=== PATIENT | male | born 1990 | race African-American/Black ===

== ENCOUNTER 2018-09-26 19:55 | Emergency (ER) | payer OTHER | END 2018-09-27 00:58 | disposition short-term general hospital (02) | LOC: JER 09-27 00:58 | PROC: 3E033NZ Introduction of Analgesics, Hypnotics, Sedatives into Peripheral Vein, Percutaneous Approach (ICD-10-PCS; principal; 2018-09-26) | DX: S11.81XA Laceration without foreign body of other specified part of neck, initial encounter (principal); X99.8XXA Assault by other sharp object, initial encounter; Y93.89 Activity, other specified; Y92.480 Sidewalk as the place of occurrence of the external cause; Y99.8 Other external cause status; Y07.9 Unspecified perpetrator of maltreatment and neglect ==

== ENCOUNTER 2020-06-02 07:58 | Emergency (ER) | payer OTHER ==
[2020-06-02 08:07] VITALS: BP 129/89; PULSE 56; TEMP 98.2; BMI 24.6
[2020-06-02] MEDS ORDERED: ACETAMINOPHEN 500 MG TABLET (FP) PO ONE (08:54)
[2020-06-02] MEDS ORDERED: CEPHALEXIN MONOHYDRATE 500 MG CAPSULE (UD) PO ONE (08:55)
[2020-06-02] MEDS ORDERED: ACETAMINOPHEN 500 MG TABLET (FP) ONE (09:09)
[2020-06-02] MEDS ORDERED: CEPHALEXIN MONOHYDRATE 500 MG CAPSULE (UD) ONE (09:09)
== END 2020-06-02 09:59 | disposition home or self-care (01) ==
LOC: JER 07:58 → JERFT 07:58
DX: B35.3 Tinea pedis (principal); L03.032 Cellulitis of left toe
CPT/HCPCS: 99284-25

== ENCOUNTER 2020-06-04 09:53 | Emergency (ER) | payer OTHER ==
[2020-06-04 10:34] VITALS: TEMP 98; BMI 24.6
[2020-06-04 12:42] LABS: BASO % 0.3 % (0-2.0); HEMATOCRIT 42.4 % (35.4-49); HEMOGLOBIN 14.5 GM/dL (11.7-16.9); LYMPH % 13.8 % (8-40); MCH 32.5 pg (25.7-33.7); MCHC 34.1 g/dl (32.0-35.9); MEAN CELL VOLUME 95.1 fl (80-96); MEAN PLT VOLUME 8.8 fl (7.5-11.1); MONO % 9.4 % (3.8-10.2); NEUT % 75.5 % (42.8-82.8); PLATELET COUNT 225 K/MM3 (134-434); RBC 4.46 M/mm3 (4.00-5.60); RDW 14.2 % (11.9-15.9); WHITE BLOOD COUNT 11.1 K/mm3 (4.0-10.0)
[2020-06-04 13:20] LABS: POTASSIUM 4.1 mmol/L (3.5-5.1)
[2020-06-04 13:21] LABS: CALCIUM 9.4 mg/dL (8.5-10.1)
[2020-06-04 13:22] LABS: ALBUMIN 3.8 g/dl (3.4-5.0); BLOOD UREA NITROGEN 9.7 mg/dL (7-18)
[2020-06-04 13:25] LABS: CREATININE 0.9 mg/dL (0.55-1.3)
[2020-06-04 13:27] LABS: BILIRUBIN,TOTAL 1.1 mg/dL (0.2-1); TOT PROT 7.9 g/dl (6.4-8.2)
[2020-06-04 14:44] VITALS: BP 130/89; PULSE 90
== END 2020-06-04 14:44 | disposition home or self-care (01) ==
LOC: JER 09:53
DX: L03.116 Cellulitis of left lower limb (principal)
CPT/HCPCS: 36415; 80053; 83605; 85025; 87040; 93971-TC; 99284-25

== ENCOUNTER 2020-06-08 15:45 | Inpatient (IN) | payer OTHER ==
[2020-06-08] MEDS ORDERED: CLINDAMYCIN 600MG PREMIX IVPB 600 MG/50 ML BAG IVPB ONE ×2 (18:03→19:21)
[2020-06-08 18:56] LABS: BASO % 0.8 % (0-2.0); EOS % 4.1 % (0-4.5); HEMATOCRIT 38.4 % (35.4-49); LYMPH % 31.8 % (8-40); MCH 32.5 pg (25.7-33.7); MEAN CELL VOLUME 95.6 fl (80-96); MEAN PLT VOLUME 8.6 fl (7.5-11.1); MONO % 10.5 % (3.8-10.2); NEUT % 52.8 % (42.8-82.8); PLATELET COUNT 292 K/MM3 (134-434); RBC 4.01 M/mm3 (4.00-5.60); RDW 14.1 % (11.9-15.9); WHITE BLOOD COUNT 7.9 K/mm3 (4.0-10.0)
[2020-06-08 19:04] LABS: INR 1.04 (0.83-1.09); PROTHROMBIN TIME (PATIENT) 12.8 SEC (9.7-13.0)
[2020-06-08 19:25] LABS: ALBUMIN 3.3 g/dl (3.4-5.0); BLOOD UREA NITROGEN 14.2 mg/dL (7-18); CALCIUM 8.6 mg/dL (8.5-10.1)
[2020-06-08] MEDS ORDERED: ACETAMINOPHEN 1000 MG/100 ML VIAL (NON FORMULARY) IVPB ONE (19:25)
[2020-06-08 19:28] LABS: CREATININE 0.9 mg/dL (0.55-1.3)
[2020-06-08 19:30] LABS: BILIRUBIN,TOTAL 0.4 mg/dL (0.2-1); TOT PROT 7.4 g/dl (6.4-8.2)
[2020-06-08] MEDS ORDERED: ACETAMINOPHEN INJECTION 100 ML IVPB ONE ×2 (19:30→20:19)
[2020-06-08 19:40] LABS: POTASSIUM 6.4 mmol/L (3.5-5.1)
[2020-06-08 20:16] LABS: ERYTHROCYTE SEDIMENTATION RATE 37 mm/hr (0-10)
[2020-06-08 21:46] LABS: POTASSIUM 4.1 mmol/L (3.5-5.1)
[2020-06-08 21:47] LABS: CALCIUM 8.3 mg/dL (8.5-10.1)
[2020-06-08 21:48] LABS: BLOOD UREA NITROGEN 14.6 mg/dL (7-18)
[2020-06-08 21:51] LABS: CREATININE 0.9 mg/dL (0.55-1.3)
[2020-06-09] MEDS: ACETAMINOPHEN 1000 MG/100 ML VIAL (NON FORMULARY) IVPB PRN ×3 (03:15→20:05)
[2020-06-09] MEDS ORDERED: CLINDAMYCIN 600MG PREMIX IVPB 600 MG/50 ML BAG IVPB ONE ×3 (04:10→15:04)
[2020-06-09] MEDS: CLINDAMYCIN 600MG PREMIX IVPB 600 MG/50 ML BAG IVPB SCH ×3 (04:15→15:10)
[2020-06-09 08:54] LABS: BASO % 0.8 % (0-2.0); EOS % 4.6 % (0-4.5); HEMATOCRIT 39.4 % (35.4-49); HEMOGLOBIN 13.4 GM/dL (11.7-16.9); LYMPH % 35.7 % (8-40); MCH 32.6 pg (25.7-33.7); MCHC 34.1 g/dl (32.0-35.9); MEAN CELL VOLUME 95.7 fl (80-96); MEAN PLT VOLUME 8.9 fl (7.5-11.1); NEUT % 45.9 % (42.8-82.8); PLATELET COUNT 276 K/MM3 (134-434); RBC 4.12 M/mm3 (4.00-5.60); RDW 13.9 % (11.9-15.9); WHITE BLOOD COUNT 6.2 K/mm3 (4.0-10.0)
[2020-06-09 09:01] LABS: ACTIVATED PTT 36.3 SECONDS (25.2-36.5)
[2020-06-09 09:06] LABS: INR 1.05 (0.83-1.09); PROTHROMBIN TIME (PATIENT) 12.7 SEC (9.7-13.0)
[2020-06-09 09:12] LABS: POTASSIUM 4.4 mmol/L (3.5-5.1)
[2020-06-09 09:15] LABS: CALCIUM 8.8 mg/dL (8.5-10.1)
[2020-06-09 09:16] LABS: ALBUMIN 3.1 g/dl (3.4-5.0); BLOOD UREA NITROGEN 15.7 mg/dL (7-18); MAGNESIUM 2.1 mg/dL (1.8-2.4)
[2020-06-09 09:19] LABS: CREATININE 0.9 mg/dL (0.55-1.3); PHOSPHOROUS 4.1 mg/dL (2.5-4.9)
[2020-06-09 09:21] LABS: BILIRUBIN,TOTAL 0.3 mg/dL (0.2-1)
[2020-06-09] MEDS ORDERED: ENOXAPARIN NA (PORCINE) 40 MG/0.4 ML DISP.SYRIN SQ SCH (12:00)
[2020-06-09] MEDS ORDERED: ENOXAPARIN NA (PORCINE) 40 MG/0.4 ML DISP.SYRIN SQ ONE (12:03)
[2020-06-09] MEDS ORDERED: ACETAMINOPHEN INJECTION 100 ML IVPB ONE ×2 (12:45→19:45)
[2020-06-10 00:25] VITALS: BMI 24.7
[2020-06-10] MEDS: CLINDAMYCIN 600MG PREMIX IVPB 600 MG/50 ML BAG IVPB SCH ×5 (00:53→21:03)
[2020-06-10] MEDS: ACETAMINOPHEN 1000 MG/100 ML VIAL (NON FORMULARY) IVPB PRN (02:12)
[2020-06-10] MEDS ORDERED: BUPIVACAINE HCL 50 ML ONE (09:52)
[2020-06-10] MEDS ORDERED: LIDOCAINE HCL 1%, 10 MG/ML (20ML VIAL) ONE (09:52)
[2020-06-10] MEDS ORDERED: LIDOCAINE HCL 2% (20ML MULTI-DOSE VIAL) ONE (10:01)
[2020-06-10] MEDS ORDERED: SODIUM CHLORIDE 0.9% P/F 10 ML VIAL IJ ONE (10:48)
[2020-06-10] MEDS ORDERED: PROPOFOL 20 ML ONE ×2 (10:53)
[2020-06-10] MEDS ORDERED: MIDAZOLAM HCL 2 MG/2 ML SINGLE DOSE VIAL ONE (10:53)
[2020-06-10] MEDS ORDERED: LIDOCAINE HCL/PF 2% SDV 5ML VIAL ONE (10:53)
[2020-06-10] MEDS ORDERED: BACITRACIN 50,000 UNITS VIAL TP ONE (11:15)
[2020-06-10] MEDS ORDERED: LIDOCAINE HCL 2% (50ML VIAL) INF ONE (11:24)
[2020-06-10] MEDS ORDERED: BUPIVACAINE HCL/PF 0.5% (5MG/ML) 10 ML VIAL IJ ONE (11:25)
[2020-06-10] MEDS ORDERED: ACETAMINOPHEN 500 MG TABLET (FP) PO PRN (11:44)
[2020-06-10] MEDS ORDERED: ONDANSETRON 4 MG/2 ML VIAL IVPUSH PRN (11:44)
[2020-06-10] MEDS ORDERED: LACTATED RINGERS SOLUTION 1,000 ML IV SCH (11:45)
[2020-06-10] MEDS: oxyCODONE HCL 5 MG TABLET PO PRN ×2 (15:31→21:03)
[2020-06-11] MEDS: oxyCODONE HCL 5 MG TABLET PO PRN ×4 (01:24→14:05)
[2020-06-11] MEDS: CLINDAMYCIN 600MG PREMIX IVPB 600 MG/50 ML BAG IVPB SCH ×2 (03:56→10:02)
[2020-06-11] MEDS ORDERED: ENOXAPARIN NA (PORCINE) 40 MG/0.4 ML DISP.SYRIN SQ SCH (10:00)
[2020-06-11 10:21] LABS: HEMATOCRIT 42.2 % (35.4-49); HEMOGLOBIN 14.6 GM/dL (11.7-16.9); MCH 32.6 pg (25.7-33.7); MCHC 34.7 g/dl (32.0-35.9); MEAN CELL VOLUME 93.8 fl (80-96); MEAN PLT VOLUME 8.3 fl (7.5-11.1); PLATELET COUNT 341 K/MM3 (134-434); RDW 13.6 % (11.9-15.9); WHITE BLOOD COUNT 8.5 K/mm3 (4.0-10.0)
[2020-06-11 10:40] LABS: POTASSIUM 3.7 mmol/L (3.5-5.1)
[2020-06-11 10:41] LABS: BLOOD UREA NITROGEN 10.2 mg/dL (7-18)
[2020-06-11 10:42] LABS: CALCIUM 9.5 mg/dL (8.5-10.1)
[2020-06-11 10:45] LABS: CREATININE 1.1 mg/dL (0.55-1.3)
[2020-06-11] MEDS ORDERED: CEFEPIME 1 GM in DEXTROSE 5%-WATER 100 ML IVPB SCH (12:00)
[2020-06-11 15:53] VITALS: BP 123/67; PULSE 68; TEMP 98.5
== END 2020-06-11 14:28 | disposition home or self-care (01) | DRG 383 ==
LOC: JER 15:45 → JERBED 20:41 → J6S 06-09 21:17
PROVIDERS: ADMIT Internal Medicine; ATTEND Family Medicine
PROC: 0Y9N0ZZ Drainage of Left Foot, Open Approach (ICD-10-PCS; principal; 2020-06-10 10:45)
DX: L03.116 Cellulitis of left lower limb (principal); J45.909 Unspecified asthma, uncomplicated; F17.210 Nicotine dependence, cigarettes, uncomplicated; F12.90 Cannabis use, unspecified, uncomplicated
CPT/HCPCS: 36415; 73630-TC-LT; 73718-TC-LT; 80048; 80053; 83735; 84100; 85025; 85027; 85610; 85651; 85730; 86140; 87040; 87070; 87186; 87205; 93005; 93010; 94760; 99285-25; C9803; J0131; U0003